=== PATIENT | male | born 1980 | race Caucasian/White ===

== ENCOUNTER 2017-04-28 16:18 | Emergency (ER) | payer OTHER ==
[~2017-04-28] VITALS: Ht 177.8 cm; Wt 104.3 kg
[2017-04-28 17:53] LABS: EOSINOPHIL (%) 0.9 % (0-5); EOSINOPHIL COUNT 0.1 K/uL (0-0.3); HEMATOCRIT 42.4 % (38.0-50.0); IMMATURE GRANULOCYTE (%) 0.4 % (0.0-0.7); IMMATURE GRANULOCYTE COUNT 0.1 K/uL; LYMPHOCYTE COUNT 2.2 K/uL (1.0-2.8); MCH 30.2 PG (29.0-34.0); MCV 88.9 FL (86-99); MONOCYTE (%) 6.9 % (3-12); MONOCYTE COUNT 1.1 K/uL (0-0.8); NEUTROPHIL (%) 77.5 % (45-76); PLATELET COUNT 278 K/uL (156-360); RBC DIS.WIDTH-CV 12.2 % (11.8-14.6); RBC DIS.WIDTH-SD 40.3 % (39-53); RED BLOOD COUNT 4.77 M/uL (4.00-5.50); WHITE BLOOD COUNT 15.4 K/uL (4.1-10.2)
[2017-04-28 18:01] LABS: CHLORIDE 104 mEq/L (99-109); D-DIMER ELISA < 150.00 ng/mLDDU (<230); POTASSIUM 4.4 mEq/L (3.7-5.4); SODIUM 140 mEq/L (136-147)
[2017-04-28 18:02] LABS: MAGNESIUM 2.1 mg/dL (1.3-2.7)
[2017-04-28 18:04] LABS: GLUCOSE 81 mg/dL (70-99)
[2017-04-28 18:05] LABS: ANION GAP 9 MEQ/L (2-14)
[2017-04-28 18:06] LABS: TOTAL BILIRUBIN 0.2 mg/dL (0.0-1.0)
[2017-04-28 18:07] LABS: ALKALINE PHOSPHATASE 48 IU/L (3-129)
[2017-04-28 18:08] LABS: GFR ESTIMATE (CALCULATED) > 59 mL/min/
[2017-04-28 18:09] LABS: UREA NITROGEN (BUN) 14 mg/dL (9-23)
[2017-04-28 18:11] LABS: CREATINE KINASE 101 IU/L (1-294); TOTAL CK 101 IU/L (1-294)
[2017-04-28 18:13] LABS: TROP-I INTERPRETATION NEGATIVE; TROPONIN-I < 0.01 ng/mL (0.0-0.30)
[2017-04-28 18:16] LABS: CK-MB 1.2 ng/mL (0.0-4.9)
[2017-04-28 20:29] VITALS: BP 121/88
== END 2017-04-28 20:32 | disposition home or self-care (01) ==
LOC: EME 16:18
PROVIDERS: Emergency Medicine
DX: R42 Dizziness and giddiness (principal); E86.0 Dehydration; F17.200 Nicotine dependence, unspecified, uncomplicated; Z82.49 Family history of ischemic heart disease and other diseases of the circulatory system; Z80.6 Family history of leukemia; Z88.0 Allergy status to penicillin
CPT/HCPCS: 71020; 80053; 82550; 82553; 83735; 84484; 85025; 85379; 93005; 99281; 99285; J7030

== ENCOUNTER 2017-07-30 15:42 | Inpatient (IN) | payer OTHER ==
[~2017-07-30] VITALS: Ht 170.2 cm; Wt 104.0 kg
[2017-07-30 16:23] LABS: HEMATOCRIT 43.3 % (38.0-50.0); HEMOGLOBIN 15.1 G/DL (12.5-16.6); MCH 30.6 PG (29.0-34.0); MCHC 34.9 G/DL (30.0-36.0); MCV 87.7 FL (86-99); PLATELET COUNT 277 K/uL (156-360); RBC DIS.WIDTH-CV 12.4 % (11.8-14.6); RBC DIS.WIDTH-SD 39.7 % (39-53); RED BLOOD COUNT 4.94 M/uL (4.00-5.50)
[2017-07-30 16:34] LABS: ALBUMIN 4.1 g/dL (3.2-4.8); CHLORIDE 106 mEq/L (99-109); POTASSIUM 3.8 mEq/L (3.7-5.4); SODIUM 139 mEq/L (136-147)
[2017-07-30 16:36] LABS: GLUCOSE 91 mg/dL (70-99)
[2017-07-30 16:37] LABS: TOTAL PROTEIN 6.8 g/dL (6.4-8.3)
[2017-07-30 16:38] LABS: TOTAL BILIRUBIN 0.4 mg/dL (0.0-1.0)
[2017-07-30 16:40] LABS: ALKALINE PHOSPHATASE 77 IU/L (3-129); CREATININE 0.8 mg/dL (0.6-1.3); GFR ESTIMATE (CALCULATED) > 59 mL/min/ (58.99-99999)
[2017-07-30 16:41] LABS: UREA NITROGEN (BUN) 13 mg/dL (9-23)
[2017-07-30 16:42] LABS: AST (GOT) 99 IU/L (2-34)
[2017-07-30 16:43] LABS: ALT (GPT) 233 IU/L (3-49)
[2017-07-30 16:52] LABS: APPEARANCE CLEAR ((CLEAR)); BILIRUBIN NEGATIVE; BLOOD NEGATIVE; COLOR YELLOW ((YELLOW)); GLUCOSE (STRIP) NEGATIVE; KETONES NEGATIVE; LEUKOCYTES NEGATIVE; NITRITE NEGATIVE; PROTEIN (STRIP) NEGATIVE; SPECIFIC GRAVITY 1.018 (1.000-1.030); UCUL ADDED? NO; UROBILINOGEN 0.2 MG/DL (0.2-1.0)
[2017-07-30 17:08] LABS: LIPASE 1474 U/L (1.0-51.0)
[2017-07-30 17:22] LABS: TROP-I INTERPRETATION NEGATIVE; TROPONIN-I < 0.01 ng/mL (0.0-0.30)
[2017-07-30 17:33] LABS: AMYLASE 859 IU/L (1-118)
[2017-07-30 19:47] LABS: TROP-I INTERPRETATION NEGATIVE; TROPONIN-I < 0.01 ng/mL (0.0-0.30)
[2017-07-30] MEDS ORDERED: TUMS500 MG PO (19:58)
[2017-07-30] MEDS ORDERED: ZYRTEC10 M3 PO (19:59)
[2017-07-30] MEDS ORDERED: BENADRYL25 MG PO (20:00)
[2017-07-30] MEDS ORDERED: PEPTO BISMOL262 MG PO (20:01)
[2017-07-31 00:06] VITALS: BP 135/79
[2017-07-31 01:04] LABS: C-REACTIVE PROTEIN 10.5 MG/L (0-10); TRIGLYCERIDES 85 MG/DL (Normal: <150)
[2017-07-31 05:19] LABS: BASOPHIL (%) 0.6 % (0-1); BASOPHIL COUNT 0.1 K/uL (0-0.1); EOSINOPHIL (%) 3.6 % (0-5); EOSINOPHIL COUNT 0.3 K/uL (0-0.3); HEMOGLOBIN 13.7 G/DL (12.5-16.6); IMMATURE GRANULOCYTE (%) 0.2 % (0.0-0.7); LYMPHOCYTE (%) 37.1 % (15-42); LYMPHOCYTE COUNT 3.5 K/uL (1.0-2.8); MCH 29.4 PG (29.0-34.0); MCHC 33.4 G/DL (30.0-36.0); MONOCYTE (%) 9.2 % (3-12); MONOCYTE COUNT 0.9 K/uL (0-0.8); NEUTROPHIL (%) 49.3 % (45-76); NEUTROPHIL COUNT 4.6 K/uL (1.8-6.4); PLATELET COUNT 259 K/uL (156-360); RBC DIS.WIDTH-CV 12.5 % (11.8-14.6); RBC DIS.WIDTH-SD 40.9 % (39-53); RED BLOOD COUNT 4.66 M/uL (4.00-5.50); WHITE BLOOD COUNT 9.4 K/uL (4.1-10.2)
[2017-07-31 05:52] LABS: ALBUMIN 3.5 G/DL (3.2-4.8); ALKALINE PHOSPHATASE 60 IU/L (3-129); ALT (GPT) 137 IU/L (3-49); AST (GOT) 43 IU/L (2-34); CHLORIDE 108 MEQ/L (99-109); CREATININE 0.8 MG/DL (0.6-1.3); GFR ESTIMATE (CALCULATED) > 59 mL/min/ (58.99-99999); GLUCOSE 90 mg/dL (70-99); POTASSIUM 4.1 MEQ/L (3.7-5.4); SODIUM 137 MEQ/L (136-147); TOTAL BILIRUBIN 0.5 MG/DL (0.0-1.0); TOTAL PROTEIN 5.5 G/DL (6.4-8.3); UREA NITROGEN (BUN) 14 mg/dL (9-23)
[2017-07-31 07:29] VITALS: BP 135/84
[2017-07-31 11:07] LABS: LIPASE 852 U/L (1.0-51.0)
[2017-07-31 15:53] VITALS: BP 132/79
[2017-07-31 23:15] VITALS: BP 118/67
[2017-08-01 07:02] LABS: HEMATOCRIT 41.2 % (38.0-50.0); HEMOGLOBIN 13.9 G/DL (12.5-16.6); MCH 29.7 PG (29.0-34.0); MCHC 33.7 G/DL (30.0-36.0); PLATELET COUNT 255 K/uL (156-360); RBC DIS.WIDTH-CV 12.3 % (11.8-14.6); RBC DIS.WIDTH-SD 39.7 % (39-53); RED BLOOD COUNT 4.68 M/uL (4.00-5.50); WHITE BLOOD COUNT 7.4 K/uL (4.1-10.2)
[2017-08-01 07:24] LABS: ALBUMIN 3.5 G/DL (3.2-4.8); ALKALINE PHOSPHATASE 56 IU/L (3-129); ALT (GPT) 90 IU/L (3-49); CHLORIDE 109 MEQ/L (99-109); CREATININE 0.7 MG/DL (0.6-1.3); GFR ESTIMATE (CALCULATED) > 59 mL/min/ (58.99-99999); GLUCOSE 76 mg/dL (70-99); LIPASE 279 U/L (1.0-51.0); POTASSIUM 4.2 MEQ/L (3.7-5.4); SODIUM 139 MEQ/L (136-147); TOTAL BILIRUBIN 0.5 MG/DL (0.0-1.0); TOTAL PROTEIN 5.8 G/DL (6.4-8.3); UREA NITROGEN (BUN) 12 mg/dL (9-23)
[2017-08-01 07:47] LABS: AST (GOT) 21 IU/L (2-34)
[2017-08-01 08:48] VITALS: BP 116/58
[2017-08-01 16:11] VITALS: BP 132/76
[2017-08-01 23:44] VITALS: BP 118/75
[2017-08-02 07:11] LABS: HEMATOCRIT 40.2 % (38.0-50.0); HEMOGLOBIN 13.4 G/DL (12.5-16.6); MCH 29.2 PG (29.0-34.0); MCHC 33.3 G/DL (30.0-36.0); MCV 87.6 FL (86-99); PLATELET COUNT 265 K/uL (156-360); RBC DIS.WIDTH-CV 12.3 % (11.8-14.6); RBC DIS.WIDTH-SD 39.3 % (39-53); RED BLOOD COUNT 4.59 M/uL (4.00-5.50); WHITE BLOOD COUNT 7.7 K/uL (4.1-10.2)
[2017-08-02 07:44] LABS: ALBUMIN 3.6 G/DL (3.2-4.8); ALKALINE PHOSPHATASE 50 IU/L (3-129); ALT (GPT) 66 IU/L (3-49); AST (GOT) 16 IU/L (2-34); CHLORIDE 106 MEQ/L (99-109); CREATININE 0.8 MG/DL (0.6-1.3); GFR ESTIMATE (CALCULATED) > 59 mL/min/ (58.99-99999); GLUCOSE 88 mg/dL (70-99); LIPASE 117 U/L (1.0-51.0); POTASSIUM 4.1 MEQ/L (3.7-5.4); SODIUM 137 MEQ/L (136-147); TOTAL BILIRUBIN 0.4 MG/DL (0.0-1.0); TOTAL PROTEIN 5.8 G/DL (6.4-8.3); UREA NITROGEN (BUN) 8 mg/dL (9-23)
[2017-08-02 08:43] VITALS: BP 132/87
[2017-08-02 16:45] VITALS: BP 132/70
[2017-08-03 00:36] VITALS: BP 127/70
[2017-08-03 06:27] LABS: BASOPHIL (%) 0.7 % (0-1); BASOPHIL COUNT 0.1 K/uL (0-0.1); EOSINOPHIL (%) 3.4 % (0-5); EOSINOPHIL COUNT 0.2 K/uL (0-0.3); HEMATOCRIT 41.5 % (38.0-50.0); HEMOGLOBIN 14.1 G/DL (12.5-16.6); IMMATURE GRANULOCYTE (%) 0.1 % (0.0-0.7); LYMPHOCYTE (%) 46.4 % (15-42); LYMPHOCYTE COUNT 3.2 K/uL (1.0-2.8); MCH 29.4 PG (29.0-34.0); MCV 86.5 FL (86-99); MONOCYTE (%) 13.8 % (3-12); MONOCYTE COUNT 0.9 K/uL (0-0.8); NEUTROPHIL (%) 35.6 % (45-76); NEUTROPHIL COUNT 2.4 K/uL (1.8-6.4); PLATELET COUNT 274 K/uL (156-360); RBC DIS.WIDTH-CV 12.1 % (11.8-14.6); RBC DIS.WIDTH-SD 39.1 % (39-53); WHITE BLOOD COUNT 6.8 K/uL (4.1-10.2)
[2017-08-03 07:06] LABS: ALBUMIN 3.7 G/DL (3.2-4.8); ALKALINE PHOSPHATASE 49 IU/L (3-129); ALT (GPT) 59 IU/L (3-49); AST (GOT) 17 IU/L (2-34); CHLORIDE 109 MEQ/L (99-109); CREATININE 0.9 MG/DL (0.6-1.3); DIRECT BILIRUBIN 0.1 mg/dL (0.0-0.3); GFR ESTIMATE (CALCULATED) > 59 mL/min/ (58.99-99999); GLUCOSE 91 mg/dL (70-99); LIPASE 83 U/L (1.0-51.0); POTASSIUM 3.9 MEQ/L (3.7-5.4); SODIUM 141 MEQ/L (136-147); TOTAL PROTEIN 5.8 G/DL (6.4-8.3); UREA NITROGEN (BUN) 6 mg/dL (9-23)
[2017-08-03 07:18] LABS: TOTAL BILIRUBIN 0.5 MG/DL (0.0-1.0)
[2017-08-03 07:37] VITALS: BP 117/70
[2017-08-03] MEDS ORDERED: DILAUDID4 MG PO (13:14)
[2017-08-03] MEDS ORDERED: COLACE100 MG PO (13:14)
[2017-08-03] MEDS ORDERED: ONDANSETRON HCL8 MG PO (13:14)
[2017-08-03 14:46] VITALS: BP 158/86
[2017-08-04 01:34] VITALS: BP 124/78
[2017-08-04 07:26] VITALS: BP 121/87
[2017-08-04 10:22] VITALS: BP 121/87
== END 2017-08-04 14:35 | disposition home or self-care (01) | DRG 418 ==
LOC: EME 15:42 → EDOF 21:34 → 5SOUTH 21:34 → ENRESERV 21:35 → 5SOUTH 23:34
PROVIDERS: Hospitalist; Internal Medicine Gastroenterology; Nurse Practitioner Family; Physician Assistant
DX: K81.1 Chronic cholecystitis (principal); K76.89 Other specified diseases of liver; K66.8 Other specified disorders of peritoneum; E86.0 Dehydration; D18.03 Hemangioma of intra-abdominal structures; K76.0 Fatty (change of) liver, not elsewhere classified; K21.9 Gastro-esophageal reflux disease without esophagitis; F17.210 Nicotine dependence, cigarettes, uncomplicated; Z68.35 Body mass index [BMI] 35.0-35.9, adult; Z91.041 Radiographic dye allergy status; Z94.81 Bone marrow transplant status
CPT/HCPCS: 70140; 71046; 74176; 74183; 74300; 76705; 80048; 80053; 80076; 81003; 82150; 83690; 84478; 84484; 85025; 85027; 86140; 88304; 93005; 99281; 99284; C1769; J0330; J1100; J1170; J1644; J1885; J2250; J2270; J2405; J2710; J3010; J3370; J7030; J7120; S0020; S0028